=== PATIENT | male | born 1990 | race African-American/Black ===

== ENCOUNTER 2019-05-09 19:28 | Emergency (ER) | payer BC ==
[2019-05-09] MEDS ORDERED: Acetaminophen 500 MG TAB ONE (19:37)
== END 2019-05-09 20:25 | disposition home or self-care (01) ==
LOC: ERS 19:28
DX: J10.1 Influenza due to other identified influenza virus with other respiratory manifestations (principal)
CPT/HCPCS: 87804; 99283

== ENCOUNTER 2019-09-23 01:00 | Emergency (ER) | payer BC ==
[2019-09-23] MEDS ORDERED: Ketorolac Tromethamine 30 MG/ML VIAL ONE (01:11)
[2019-09-23] MEDS ORDERED: Ibuprofen 800 MG TAB ONE (01:15)
--- NOTE | 2019-09-23 07:34 | RAD ---
Chest one view HISTORY: Chest pain. FINDINGS: Cardiac silhouette and pulmonary vasculature are unremarkable. Mediastinum is midline. No c onfluent airspace consolidation or evidence of pneumothorax. piping engineer leads overlie the chest. IMPRESSION : Normal exam.
--- NOTE | 2019-10-03 16:36 | EKG ---
Test Reason : Blood Pressure : / mmHG Vent. Rate : 064 BPM Atrial Rate : 064 BPM P-R Int : 136 ms QRS Dur : 090 ms QT Int : 360 ms P-R-T Axes : 045 046 039 degrees QTc Int : 371 ms Normal sinus rhythm Normal ECG Confirmed by BONITA GARCIA ([id number]), editor managing director NICOLÁS YO ([id number] on 10/03/2019 4:35:57 PM Referred By: Confirmed By:BONITA GARCIA
== END 2019-09-23 01:48 | disposition home or self-care (01) ==
LOC: ERS 01:00
DX: R07.89 Other chest pain (principal); I10 Essential (primary) hypertension
CPT/HCPCS: 71045; 93005; J1885

== ENCOUNTER 2020-04-17 11:54 | Emergency (ER) | payer BC ==
[2020-04-17 20:01] LABS: SARS-CoV-2 MS2 Positive; SARS-CoV-2 N Gene Negative; SARS-CoV-2 S Gene Negative; SARS-CoV-2 by NAA Not Detected (NotDetected); SARS-CoV-2 orf1ab Negative
== END 2020-04-17 12:20 | disposition home or self-care (01) ==
LOC: ERS 11:54
DX: Z20.828 Contact with and (suspected) exposure to other viral communicable diseases (principal)
CPT/HCPCS: 87635; 99283; U0003

== ENCOUNTER 2025-05-08 13:31 | Emergency (ER) | payer OTHER ==
[2025-05-08 14:10] LABS: Bacteria/HPF None Seen HPF (None Seen); Glucose, Urine (Dipstick) Normal (Negative); Leukocyte Negative Leu/uL (Negative); Protein, Urine (Dipstick) Negative (Neg-Trace); RBC/HPF 0-3 HPF (0-3); Specific Gravity, Urine 1.025 (1.002-1.036); WBC/HPF 0-3 HPF (0-3)
== END 2025-05-08 14:43 | disposition home or self-care (01) ==
LOC: ERS 13:31
DX: Z00.01 Encounter for general adult medical examination with abnormal findings (principal)
CPT/HCPCS: 81001; 99282